=== PATIENT | female | born 1975 | race Caucasian/White ===

== ENCOUNTER 2021-06-05 09:05 | Emergency (ER) | payer OTHER, SELFPAY ==
--- NOTE | 2021-06-05 09:08 | ED.URI ---
HPI - URI/Sore Throat General Chief Complaint: Upper Respiratory Infection Stated Complaint: sore throat headache and runny nose Time Seen by Provider: 06/05/21 09:09 Source: patient and RN notes reviewed History of Present Illness HPI Narrative: Patient is a 45-year-old female who presents the urgent care with complaints of sore throat, headache, runny nose and fatigue. States that symptoms started 2 days ago. Patient states that she was exposed to Covid this weekend with 3 kids in her home testing positive. Patient has not been vaccinated. States that she has been taking Tylenol [id number] for her symptoms. 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 No other acute complaints. No acute distress noted. Patient aware of the plan of care. Some parts of this dictation were generated by voice recognition software and may contain typographical and/or grammatical inaccuracies. Related Data Home Medications Medication Instructions Recorded Confirmed lisinopril 20 mg PO DAILY 09/29/19 09/29/19 metformin 500 mg PO DAILY 09/29/19 09/29/19 montelukast 10 mg PO DAILY 06/05/21 06/05/21 Allergies Allergy/AdvReac Type Severity Reaction Status Date / Time codeine AdvReac Unknown ITCH Verified 06/05/21 09:30 tramadol AdvReac Unknown N/V Verified 06/05/21 09:30 Review of Systems Review of Systems: CONSTITUTIONAL: Denies fever, chills, or sweats. Reports of fatigue EYES: Denies visual changes, redness, or discharge. ENT: Reports of sore throat, otalgia, congestion, runny nose CARDIOVASCULAR: Denies chest pain, palpitations, or edema. RESPIRATORY: Denies cough or dyspnea. GASTROINTESTINAL: Denies abdominal pain, nausea, vomiting, or diarrhea. GENITOURINARY: Denies dysuria or hematuria. SKIN: Denies rash or itching. MUSCULOSKELETAL: Denies back pain, joint pain, or myalgia. NEUROLOGIC: Reports a headache All other systems reviewed are negative, except as documented in HPI. [facility] Family History Family History Other Diabetes mellitus Heart disease Social History Social History (Updated 09/29/19 @ 10:50 by Yina Velarde CNP) Smoking status: Former smoker Tobacco type: cigarettes Comments At the time of my signature, I reviewed and agree with the nursing past medical, surgical, social, and family history. There is no relevant family history pertinent to the patient complaint. Exam Narrative: GENERAL: This is a well-nourished, well-developed patient, in no apparent distress. HEAD: normocephalic, atraumatic. EYES: PERRL. Sclera clear/white. Vision is grossly intact. EARS: External ears normal, auditory canals clear and without drainage, TMs normal without perforation. Hearing grossly intact. NOSE: External nose normal with no obvious nasal discharge, nares without redness, clear rhinorrhea. THROAT: Mucous membranes moist, posterior pharynx clear. Mild postnasal drainage NECK: Neck supple CARDIOVASCULAR: Regular rate and rhythm without murmurs, gallops, or rubs. RESPIRATORY: Clear to auscultation. Breath sounds equal bilaterally. No wheezes, rales, or rhonchi. SKIN: warm, intact with no suspicious lesions or rash, good texture and turgor. NEURO: awake, alert, and oriented to person, place and time. There were no obvious focal neurologic abnormalities. EXTREMITIES: No clubbing, cyanosis, or edema. Course Vital Signs Vital signs: Vital Signs Temperature 98.3 F 06/05/21 09:13 Pulse Rate 86 06/05/21 09:13 Respiratory Rate 18 06/05/21 09:13 Blood Pressure 149/87 H 06/05/21 09:13 Pulse Oximetry 100 06/05/21 09:13 Temperature 98.3 F 06/05/21 09:13 Pulse Rate 86 06/05/21 09:13 Respiratory Rate 18 06/05/21 09:13 Blood Pressure 149/87 H 06/05/21 09:13 Pulse Oximetry 100 06/05/21 09:13 Reviewed-patient is informed that they may have pre-hypertension or h
[2021-06-05 09:13] VITALS: BP 149/87; PULSE 86; RESP 18; TEMP 36.8; O2SAT 100
== END 2021-06-05 09:25 | disposition home or self-care (01) ==
PROVIDERS: Emergency Provider Nurse Practitioner Family; PCP Nurse Practitioner Family
DX: Z20.822 Contact with and (suspected) exposure to COVID-19 (principal); J02.9 Acute pharyngitis, unspecified; R51.9 Headache, unspecified; Z87.891 Personal history of nicotine dependence; I10 Essential (primary) hypertension; E11.9 Type 2 diabetes mellitus without complications
CPT/HCPCS: 87081; 87880; 99213; G0463

== ENCOUNTER 2022-10-17 13:54 | Emergency (ER) | payer OTHER, SELFPAY ==
[2022-10-17 13:56] VITALS: BP 123/82; PULSE 117; RESP 16; TEMP 36.8; O2SAT 100
--- NOTE | 2022-10-17 15:42 | ED.URI ---
HPI - URI/Sore Throat General Chief Complaint: Upper Respiratory Infection Stated Complaint: sore throat Time Seen by Provider: 10/17/22 15:42 Source: patient, RN notes reviewed and old records reviewed Mode of arrival: ambulatory Limitations: no limitations History of Present Illness HPI Narrative: 47 year old female who presents to [facility] care with complaints of 1 day history of stated severe sore throat especially when swallowing, denies any known fevers, chills or body aches. Patient reports she does have dry hacky cough with no mucous production, denies any shortness of breath, no tachypnea noted with respirations even and nonlabored, SAO2 100% on room air. Patient reports that she has taken Tylenol and Ibuprofen for her discomfort. MD elicited complaint: cough and sore throat Pertinent past history: seasonal allergies and other (bronchitis) Onset (ago): day(s) (1) Pain scale (0-10): 5 Able to tolerate fluids by mouth: Yes Exacerbating factors: swallowing Treatments prior to arrival: acetaminophen and ibuprofen Related Data Home Medications Medication Instructions Recorded Confirmed lisinopril 20 mg tablet 20 mg PO DAILY 09/29/19 06/05/21 metformin 500 mg tablet 500 mg PO DAILY 09/29/19 06/05/21 gabapentin 400 mg capsule 400 mg PO TID 06/05/21 06/05/21 meloxicam 7.5 mg tablet 7.5 mg PO DAILY 06/05/21 06/05/21 montelukast 10 mg tablet 10 mg PO DAILY 06/05/21 06/05/21 atorvastatin 20 mg tablet mg 10/17/22 losartan 100 mg tablet mg 10/17/22 omeprazole 20 mg capsule,delayed mg 10/17/22 release Allergies Allergy/AdvReac Type Severity Reaction Status Date / Time codeine AdvReac Unknown ITCH Verified 06/05/21 09:30 tramadol AdvReac Unknown N/V Verified 06/05/21 09:30 Review of Systems Review of Systems: CONSTITUTIONAL: Denies malaise, chills, sweats, or fever. EYES: Denies visual changes, redness, or discharge. ENT: Reports rhinorrhea, congestion,no sinus pain,no otalgia positive for sore throat. CARDIOVASCULAR: Denies chest pain, palpitations, or edema. RESPIRATORY: Reports cough.? Denies dyspnea. GASTROINTESTINAL: Denies abdominal pain, nausea, vomiting, diarrhea SKIN: Denies rash or itching. MUSCULOSKELETAL: Denies myalgia. NEUROLOGIC: Denies headache. All systems reviewed & are unremarkable except as noted in HPI and below PMFSH Past Medical History Medical History (Updated 10/18/22 @ 09:25 by Mary Spivey NP) Anxiety Diabetes GERD (gastroesophageal reflux disease) Hyperlipidemia Hypertension Surgical History Surgical History (Updated 10/18/22 @ 09:33 by Mary Spivey NP) H/O eye surgery Family History Family History Other Diabetes mellitus Heart disease Social History Social History (Updated 10/18/22 @ 09:25 by Mary Spivey NP) Smoking status: Former smoker Tobacco type: cigarettes Gender identity (if verbalized by the patient): Female Comments At time of signature, agree with nursing past medical, surgical, social and family history. There is no relevant family history pertinent to the presenting complaint Exam Narrative: GENERAL: Well-appearing, well-nourished, and in no acute distress. HEAD: Normocephalic EYES: PERRLA, conjunctivae clear ENT: Nares clear, turbinates edematous and erythematous, clear discharge. Mucous membranes moist. TM pearly redding with dull light reflex bilaterally; no tragal tenderness. Oropharynx erythematous without lesions. Tonsils not enlarged and without exudate, no drooling, no hoarseness, no trismus, uvula midline.some post nasal discharge NECK: Supple. No lymphadenopathy CHEST: Clear to auscultation, breath sounds equal. No wheezing, rhonchi, rales, or stridor. No respiratory distress, speaks in full sentences.hacky cough dry SAO2 100% on room air HEART: Regular rate and rhythm. No murmur heard. SKIN: Warm, dry, no rash. NEURO: Alert and or
== END 2022-10-17 15:59 | disposition home or self-care (01) ==
PROVIDERS: Emergency Provider Registered Nurse; PCP Nurse Practitioner Family
DX: J06.9 Acute upper respiratory infection, unspecified (principal); R05.1 Acute cough; E11.9 Type 2 diabetes mellitus without complications; K21.9 Gastro-esophageal reflux disease without esophagitis; E78.5 Hyperlipidemia, unspecified; I10 Essential (primary) hypertension; Z87.891 Personal history of nicotine dependence
CPT/HCPCS: 87081; 87880; 99213; G0463

== ENCOUNTER 2023-06-04 17:50 | Emergency (ER) | payer OTHER, SELFPAY ==
[2023-06-04 17:56] VITALS: BP 102/66; PULSE 97; RESP 16; TEMP 36.7; O2SAT 99
--- NOTE | 2023-06-04 19:17 | ED.GENADULT ---
HPI - General Adult General Chief complaint: Upper Respiratory Infection Stated complaint: strep Source: patient Mode of arrival: ambulatory Limitations: no limitations History of Present Illness HPI narrative: Patient presents for evaluation of sore throat with symptom onset this morning. She has several family members sick currently have strep. She denies any fever, chills, nausea, vomiting, diarrhea, cough, shortness of breath. She does have some bilateral ear pain. She is not taking any medications to assist with her symptoms. No additional complaints or concerns. Related Data Home Medications Medication Instructions Recorded Confirmed lisinopril 20 mg tablet 20 mg PO DAILY 09/29/19 06/04/23 metformin 500 mg tablet 500 mg PO DAILY 09/29/19 06/04/23 gabapentin 400 mg capsule 400 mg PO TID 06/05/21 06/04/23 meloxicam 7.5 mg tablet 7.5 mg PO DAILY 06/05/21 06/04/23 montelukast 10 mg tablet 10 mg PO DAILY 06/05/21 06/04/23 atorvastatin 20 mg tablet 20 mg PO DAILY 10/17/22 06/04/23 losartan 100 mg tablet 100 mg PO DAILY 10/17/22 06/04/23 omeprazole 20 mg capsule,delayed 20 mg PO DAILY 10/17/22 06/04/23 release Allergies Allergy/AdvReac Type Severity Reaction Status Date / Time codeine AdvReac Unknown ITCH Verified 06/04/23 18:03 tramadol AdvReac Unknown N/V Verified 06/04/23 18:03 Review of Systems Review of Systems: CONSTITUTIONAL: Denies fever, chills, or sweats. EYES: Denies visual changes, redness, or discharge. ENT: Reports sore throat and bilateral ear pain. Denies congestion and rhinorrhea CARDIOVASCULAR: Denies chest pain, palpitations, or edema. RESPIRATORY: Denies cough or dyspnea. GASTROINTESTINAL: Denies abdominal pain, nausea, vomiting, or diarrhea. GENITOURINARY: Denies dysuria or hematuria. SKIN: Denies rash or itching. MUSCULOSKELETAL: Denies back pain, joint pain, or myalgia. NEUROLOGIC: Denies headache, numbness, dizziness, or weakness. PSYCHIATRIC: Denies anxiety or depression. [facility] Past Medical History Medical History Anxiety Diabetes GERD (gastroesophageal reflux disease) Hyperlipidemia Hypertension Surgical History Surgical History H/O eye surgery Family History Family History (Reviewed 06/04/23 @ 19:23 by José Miguel Rogers, [facility]) Other Diabetes mellitus Heart disease Social History Social History Smoking status: Former smoker Tobacco type: cigarettes Living arrangements: with family Gender identity (if verbalized by the patient): Female Spiritual care concerns: No Exam Narrative: GENERAL: Well-appearing, well-nourished, and in no acute distress. HEAD: Normocephalic, atraumatic. EYES: PERRLA and EOMI. ENT: Nares clear, no rhinorrhea or epistaxis. Mucous membranes moist. Posterior pharyngeal erythema without exudate. Uvula is midline. Bilateral TMs pearly redding nonbulging NECK: Supple. No adenopathy or masses. No carotid bruits or JVD CHEST: Clear to auscultation. No respiratory distress. No wheezes rales or rhonchi HEART: Regular rate and rhythm. No murmur heard. Normal peripheral pulses. ABDOMEN: Soft, nontender, nondistended, normal active bowel sounds. EXTREMITIES: Normal range of motion. No edema. SKIN: Warm, dry, no rash. NEURO: No focal deficits. Alert and oriented x3. PSYCH: Normal mood and affect. Course Course Emergency Course: This is a 47-year-old female who presented for evaluation of sore throat after several recent strep exposures. Rapid strep negative. Through shared decision making we agreed to treat with amoxicillin based upon recent exposures. Follow up with primary provider. Go to the ER for worsening symptoms. Pt in agreement with plan of care. Level of Care: Express Care Visit Vital Signs Vital signs: Vital Signs Temperatur
== END 2023-06-04 18:44 | disposition home or self-care (01) ==
PROVIDERS: Emergency Provider Nurse Practitioner; PCP Nurse Practitioner Family
DX: J02.9 Acute pharyngitis, unspecified (principal); Z20.818 Contact with and (suspected) exposure to other bacterial communicable diseases; E11.9 Type 2 diabetes mellitus without complications; Z79.84 Long term (current) use of oral hypoglycemic drugs; K21.9 Gastro-esophageal reflux disease without esophagitis; E78.5 Hyperlipidemia, unspecified; I10 Essential (primary) hypertension; Z87.891 Personal history of nicotine dependence
CPT/HCPCS: 87081; 87880; 99213; G0463